=== PATIENT | male | born 1985 | race Caucasian/White ===

== ENCOUNTER 2018-08-18 10:03 | Emergency (ER) | payer SELFPAY ==
[~2018-08-18] VITALS: Ht 175.3 cm; Wt 96.7 kg
[2018-08-18 10:15] VITALS: Ht 175.3 cm; Wt 96.7 kg
[2018-08-18] MEDS ORDERED: IBUPROFEN 600 MG TAB PO ONE (12:00)
[2018-08-18] MEDS ORDERED: IBUP-1542 PO (12:38)
[2018-08-18 12:53] VITALS: BP 141/80; PULSE 74; RESP 16
--- NOTE | 2018-08-21 20:00 | ERD ---
ER Documentation Chief Complaint Chief Complaint rt ankle pain from injury x 2 weeks ago HPI 33-year-old male patient with no significant past medical history presents to the ED complaining of a right ankle injury that occurred 2 weeks ago. Patient describes his pain as throbbing and rates it a 5 out of 10. Denies any chest pain, shortness of breath, nausea, vomiting, diarrhea, neck stiffness. Patient is eating appropriately, tolerating oral intake, has normal bowel movements and good urine output. ROS All systems reviewed and are negative except as per history of present illness. Medications Home Meds Active Scripts Ibuprofen* (Motrin*) 600 Mg Tab, 600 MG PO Q6, #30 TAB Prov:WATTSCRISTY Skylar MIRELES 08/18/18 Allergies Allergies: Coded Allergies: No Known Allergy (Unverified , 08/18/18) PMhx/Soc Medical and Surgical Hx: pt denies Medical Hx, pt denies Surgical Hx Hx Alcohol Use: Yes Hx Substance Use: No Hx Tobacco Use: No Smoking Status: Never smoker FmHx Family History: No diabetes, No coronary disease Physical Exam Vitals Vital Signs Date Temp Pulse Resp B/P (MAP) Pulse Ox O2 O2 Flow FiO2 Time Delivery Rate 08/18/18 98.6 74 16 141/80 99 12:53 (100) 08/18/18 98.1 88 18 154/87 99 10:15 (109) Physical Exam Const: Eoi-kzu-prggylbjn, well-nourished. In no acute distress. Head: Atraumatic, normocephalic Eyes: Normal Conjunctiva without injection ENT: Normal external ear, nose and mouth. Neck: Full range of motion. No meningismus. Resp: Clear to auscultation bilaterally. No wheezing, rhonchi, rales, or crackl es. No accessory muscle use. No retractions. Cardio: Regular rate and rhythm, no murmurs Skin: No petechiae or rashes Back: No midline tenderness. No CVA tenderness. Ext: No cyanosis, or edema. Cap refill less than 2 seconds. Distal pulses intact bilaterally. Tenderness to palpation of the right lateral malleolus. No erythema, fluctuance, edema, purulent discharge noted. Neur: Awake and alert. Normal gait and coordination. Muscle strength 5/5. Sensation intact bilaterally. Psych: Normal Mood and Affect Tenderness palpation of the right lateral malleolus with no edema, erythema. Results 24 hrs Current Medications Medications Dose Sig/Ann Start Time Status Last (Trade) Ordered Route PRN Stop Time Admin Dose Reason Admin Ibuprofen 600 mg ONCE ONCE 08/18/18 DC 08/18/18 (Motrin) PO 12:00 11:39 08/18/18 12:01 Procedures/MDM 33-year-old female patient with no significant past medical history presents the ED complaining of a right ankle injury. Patient is afebrile and nontoxic- appearing. Patient given 600 mg IM with improvement of her symptoms. IMPRESSION: 1. Unremarkable right ankle x-ray series. Patient is placed in an bronson wrap splint. Patient denied wanting crutches. Splint Assessment: Neurovascularly intact pre and post splint placement with good fit. Patient's extremity symptoms have stabilized while they have been evaluated in the department and are appropriate for outpatient follow up. No evidence of fractures, dislocations, compartment syndrome, neurologic injury, vascular injury, open joint, open fracture, tendon laceration, septic arthritis, osteomyelitis, DVT, foreign body, or other emergent conditions. Diagnosis: Ankle Injury Discharge medications: Ibuprofen Follow up with primary care physician in 1-2 days. Instructed patient to return to the ED sooner for any worsening symptoms. Patient's questions were answered. Patient is hemodynamically stable. Patient understood and agreed with discharge plan. Patient discharged stable. Disclaimer: Inadvertent spelling and grammatical errors are likely due to EHR/dictation software use and do not reflect on the overall quality of patient care. Also, please note that the electronic time recorded on this note does not necessarily reflect the actual time of the patient encounter. Departure Diagnosis: Primary Impression: Ankle injury Encounter type: initial encounter Laterality: right Qualified Codes: S99.911A - Unspecified injury of right ankle, initial encounter Condition: Stable Patient Instructions: What Are Ankle Sprains?, Treating Ankle Sprains, Contusion, Lower Extremity Referrals: [facility] YOU HAVE RECEIVED A MEDICAL SCREENING EXAM AND THE RESULTS INDICATE THAT YOU DO NOT HAVE A CONDITION THAT REQUIRES URGENT TREATMENT IN THE EMERGENCY DEPARTMENT. FURTHER EVALUATION AND TREATMENT OF YOUR CONDITION CAN WAIT UNTIL YOU ARE SEEN IN YOUR DOCTORS OFFICE WITHIN THE NEXT 1-2 DAYS. IT IS YOUR RESPONSIBILITY TO MAKE AN APPOINTMENT FOR FOLOW-UP CARE. IF YOU HAVE A PRIMARY DOCTOR --you should call your primary doctor and schedule an appointment IF YOU DO NOT HAVE A PRIMARY DOCTOR YOU CAN CALL OUR PHYSICIAN REFERRAL HOTLINE AT IF YOU CAN NOT AFFORD TO SEE A PHYSICIAN YOU CAN CHOSE FROM THE FOLLOWING [facility] [address] [facility] [address] [facility] [address] [facility] [address] [facility] [address] [facility]. [facility] [address] [facility]. [facility] YOU HAVE RECEIVED A MEDICAL SCREENING EXAM AND THE RESULTS INDICATE THAT YOU DO NOT HAVE A CONDITION THAT REQUIRES URGENT TREATMENT IN THE EMERGENCY DEPARTMENT. FURTHER EVALUATION AND TREATMENT OF YOUR CONDITION CAN WAIT UNTIL YOU ARE SEEN IN YOUR DOCTORS OFFICE WITHIN THE NEXT 1-2 DAYS. IT IS YOUR RESPONSIBILITY TO MAKE AN APPOINTMENT FOR FOLOW-UP CARE. IF YOU HAVE A PRIMARY DOCTOR --you should call your primary doctor and schedule and appointment IF YOU DO NOT HAVE A PRIMARY DOCTOR YOU CAN CALL OUR PHYSICIAN REFERRAL HOTLINE AT . IF YOU CAN NOT AFFORD TO SEE A PHYSICIAN YOU CAN CHOSE FROM THE FOLLOWING [facility] INSTITUTIONS: [facility] [address] [place] [address] [facility] [address] [place] [address] [facility] [address] [place] [address] [facility] URGENT C[facility]/SPECIALTIES Additional Instructions: Call your primary care doctor TOMORROW for an appointment during the next 2-3 days.See the doctor sooner or return here if your condition worsens before your appointment time. CRISTY WATTS PA-C Aug 21, 2018 20:00
== END 2018-08-18 12:54 | disposition home or self-care (01) ==
LOC: FTE 10:03
DX: S99.911A Unspecified injury of right ankle, initial encounter (principal); X58.XXXA Exposure to other specified factors, initial encounter; Y92.9 Unspecified place or not applicable